=== PATIENT | female | born 1960 | race African-American/Black ===

== ENCOUNTER 2023-05-24 04:18 | Outpatient (REF) | payer MEDICAID, SELFPAY ==
[2023-05-24 05:42] LABS: Basophils Percent Auto 0.2 % (0.2-2.0); Eosinophils Absolute Auto 0.2 10^3/uL (0.0-0.7); Eosinophils Percent Auto 3.4 % (0.9-7.0); Immature Granulocytes Abs Auto 0.02 10^3/uL (0.00-0.03); Immature Granulocytes Pct Auto 0.4 % (0.0-0.5); Lymphocytes Absolute Auto 2.2 10^3/uL (1.2-3.8); Lymphocytes Percent Auto 44.5 % (20.5-60.0); Mean Corpuscular HGB Conc 29.7 g/dL (29.9-35.2); Mean Corpuscular Hemoglobin 31.5 pg (26.7-34.0); Mean Platelet Volume 11.8 fL (9.5-13.5); Monocytes Absolute Auto 0.6 10^3/uL (0.3-0.8); Monocytes Percent Auto 11.9 % (1.7-12.0); Neutrophils Percent Auto 39.6 % (43.0-75.0); Platelet Count 32 10^3/uL (150-450); Red Cell Distribution Width 20.3 % (11.0-15.0)
[2023-05-24 05:43] LABS: Anion Gap 10.1; BUN Creatinine Ratio 36.2; Calcium 9.3 mg/dL (8.5-10.1); Carbon Dioxide 26.4 mmol/L (21.0-32.0); Chloride 116 mmol/L (98-107); Estimated GFR (African America 42 (>=60); Estimated GFR (Non-African Ame 35 (>=60); Glucose 104 mg/dL (74-106); Potassium 4.5 mmol/L (3.5-5.1); Sodium 148 mmol/L (136-145)
[2023-05-24 05:58] LABS: Hematocrit 21.2 % (36.0-48.0); Hemoglobin 6.3 g/dL (12.0-16.0)
== END 2023-05-24 04:19 | disposition home or self-care (01) ==
LOC: LAB 04:18
PROVIDERS: PCP Family Medicine
DX: J96.10 Chronic respiratory failure, unspecified whether with hypoxia or hypercapnia (principal)
CPT/HCPCS: 36415; 80048; 85025